=== PATIENT | female | born 1995 | race Caucasian/White ===

== ENCOUNTER 2017-04-09 13:28 | Outpatient (CLI) | payer OTHER ==
[2017-04-09 14:08] LABS: Anion Gap 13 mmol/L (10-20); BUN (Urea Nitrogen) 6 mg/dL (8.4-21.0); Bilirubin, Total 0.7 mg/dL (0.2-1.2); Calc. Creatinine Clearance 0 mL/min (70-130); Calcium 9.6 mg/dL (7.8-10.44); Carbon Dioxide 27 mmol/L (22-29); Chloride 106 mmol/L (98-107); Estimated GFR-MDRD Greater than 90; Protein, Total 7.4 g/dL (6.0-8.3)
[2017-04-09 14:09] LABS: ALT (SGPT) 9 U/L (8-55); AST (SGOT) 16 U/L (5-30); Alkaline Phosphatase 62 U/L (40-150); Globulin 3.2 g/dL (2.4-3.5)
[2017-04-09 14:13] LABS: #Basophils 0.1 thou/uL (0.0-0.2); #Eosinphils 0.1 thou/uL (0.0-0.7); #Lymphocytes 2.4 thou/uL (1.20-3.40); #Monocytes 0.6 thou/uL (0.11-0.59); #Neutrophils 5.5 thou/uL (1.40-6.50); %Basophils 1.1 % (0.0-1.0); %Eosinophils 1.5 % (0.0-10.0); %Lymphocytes 27.5 % (28.0-48.0); %Monocytes 7.1 % (0.0-4.0); Hematocrit 38.3 % (36.0-47.0); Red Blood Cell (RBC) Count 4.43 mill/uL (4.00-5.20); White Blood Cell (WBC) Count 8.7 thou/uL (4.8-10.8)
--- NOTE | 2017-04-09 15:41 | ULT ---
PELVIC ULTRASOUND: HISTORY: Irregular menses. COMPARISON: None. TECHNIQUE: Multiplanar dudley-scale and color Doppler images were obtained in a transabdominal and transvaginal p elvic ultrasound. Spectral analysis with Doppler waveforms of the ovaries was performed. FINDINGS: The uterus is normal in size and appearance without focal abnormality. The endometrial stripe is no rmal in appearance, measuring 1 to 2 mm. No free fluid is seen in the pelvis. Both ovaries are normal in size and demonstrate normal interna l flow. A dominant follicle is seen in the left ovary. IMPRESSION: Unremarkable pelvic ultrasound. POS: [facility]
== END 2017-04-09 13:29 | disposition home or self-care (01) ==
LOC: SCSULT 13:28
PROVIDERS: ATTEND Family Medicine
DX: N92.6 Irregular menstruation, unspecified (principal)
CPT/HCPCS: 36415; 76856; 80053; 84439; 84443; 85025